=== PATIENT | male | born 1950 | race Caucasian/White ===

== ENCOUNTER 2025-07-14 21:19 | Emergency (ER) | payer MEDICARE, MEDICAID ==
[~2025-07-14] VITALS: Ht 175.3 cm; Wt 73.0 kg
[2025-07-14 21:46] VITALS: TEMP 36.7; O2SAT 99
[2025-07-14] MEDS ORDERED: CARI250T MT (22:22)
[2025-07-14 22:27] VITALS: BP 102/54; PULSE 76; RESP 13; O2SAT 100
[2025-07-14] MEDS: LIDOCAINE 5% PATCH TOP SCH (22:28)
[2025-07-14] MEDS: KETOROLAC 15MG/ML VIAL IM ONE (22:28)
[2025-07-14] MEDS ORDERED: LIDO-53 TP (22:32)
== END 2025-07-14 22:42 | disposition home or self-care (01) ==
LOC: ER 21:19
DX: M54.12 Radiculopathy, cervical region (principal); E11.9 Type 2 diabetes mellitus without complications; E78.00 Pure hypercholesterolemia, unspecified; I10 Essential (primary) hypertension; Z88.0 Allergy status to penicillin; Z88.8 Allergy status to other drugs, medicaments and biological substances; Z79.899 Other long term (current) drug therapy
CPT/HCPCS: 99283; 96372; J1885

== ENCOUNTER 2025-07-15 22:04 | Emergency (ER) | payer MEDICARE, MEDICAID ==
[~2025-07-15] VITALS: Ht 175.3 cm; Wt 74.0 kg
[~2025-07-15 22:04] MED LIST: CARI250T MT; LIDO-53 TP
[2025-07-15 23:18] VITALS: O2SAT 99
[2025-07-16 01:14] VITALS: TEMP 36.8
[2025-07-16 03:02] VITALS: BP 119/71; PULSE 97; RESP 16; O2SAT 100
[2025-07-16] MEDS: KETOROLAC 15MG/ML VIAL IM ONE (03:02)
[2025-07-16] MEDS: CARISOPRODOL 350 MG TABLET PO ONE (03:07)
== END 2025-07-16 03:09 | disposition home or self-care (01) ==
LOC: ER 22:04
DX: M54.12 Radiculopathy, cervical region (principal); E11.9 Type 2 diabetes mellitus without complications; E78.00 Pure hypercholesterolemia, unspecified; I10 Essential (primary) hypertension; Z88.0 Allergy status to penicillin; Z88.8 Allergy status to other drugs, medicaments and biological substances; Z79.899 Other long term (current) drug therapy
CPT/HCPCS: 99283; 96372; J1885